=== PATIENT | female | born 1960 | race Caucasian/White ===

== ENCOUNTER 2016-12-11 10:32 | Observation (INO) | payer OTHER ==
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
[~2016-12-11 10:32] MED LIST: CHLORHEXIDINE GLUC HIBICLENS 118 ML BTL TP ONE; ceFAZolin 2 GM/DEXTROSE 100 ML IV ONE
[2016-12-11] MEDS ORDERED: BUPIVACAINE/EPI 0.5% 30 ML SDV ONE (10:36)
[2016-12-11] MEDS ORDERED: CEFAZOLIN 2 GM/DEXTROSE/100 ML BAG IV ONE (10:39)
[2016-12-11] MEDS ORDERED: LR 1,000 ML IV ONE (11:05)
[2016-12-11] MEDS ORDERED: LIDOCAINE 1% 5 ML SDV ID PRN (11:05)
[2016-12-11] MEDS ORDERED: MIDAZOLAM 2 MG/2 ML VIAL ONE (13:49)
[2016-12-11] MEDS ORDERED: fentaNYL 250 MCG/5 ML INJ ONE (13:51)
[2016-12-11] MEDS ORDERED: PROPOFOL 200 MG/20 ML VIAL ONE (13:52)
[2016-12-11] MEDS ORDERED: HYDROmorphONE/DILAUDID 2 MG/ML SYR ONE ×2 (15:08→16:41)
[2016-12-11] MEDS ORDERED: ONDANSETRON 4 MG/2 ML VIAL ONE (15:10)
[2016-12-11] MEDS ORDERED: DEXAMETHASONE 4 MG/ML VIAL ONE (15:10)
[2016-12-11] MEDS ORDERED: BACITRACIN 50,000 UNITS/10 ML SYR IRR ONE (15:44)
--- NOTE | 2016-12-11 16:04 | POSTOPPROG ---
Post Op Note Date of Operation: 12/11/16 Surgeon: Danny Sutton Rug Renovator: Shaq Anesthesiologist: Dyllan Anesthesia: GET(General Endotracheal) Post-op Diagnosis: left tibial plateau fracture Procedure: ORIF Inf/Abcess present in the surg proc area at time of surgery?: No EBL: 50-100
[2016-12-11] MEDS ORDERED: OXYCODONE/APAP 5/325 TAB PO PRN (16:22)
[2016-12-11] MEDS ORDERED: HYDROCODONE/APAP 5/325 TAB PO PRN (16:22)
[2016-12-11] MEDS ORDERED: ONDANSETRON DISINTEGRATING 4 MG TAB PO PRN (16:22)
[2016-12-11] MEDS ORDERED: ONDANSETRON 4 MG/2 ML VIAL IVP PRN (16:22)
[2016-12-11] MEDS ORDERED: traMADol 50 MG TAB PO PRN (16:22)
[2016-12-11] MEDS ORDERED: fentaNYL 100 MCG/2 ML INJ ONE (16:24)
[2016-12-11] MEDS ORDERED: MEPERIDINE 25 MG/ML SYR ONE (16:24)
[2016-12-11] MEDS ORDERED: LR 1,000 ML IV SCH (16:30)
[2016-12-11] MEDS ORDERED: KETOROLAC 15 MG/1 ML SDV ONE (16:37)
--- NOTE | 2016-12-11 18:05 | DX ---
Intraoperative Fluoroscopy of the Tibia CLINICAL HISTORY: Intraoperative evaluation during ORIF for a tibial fracture. COMPARISON STUDY: None currently available. FINDINGS: Dr. Danny Sutton used 59.1 seconds of fluoroscopy time and an exposure dose of 2.95 mGy du ring open reduction and internal fixation for a proximal tibial diaphyseal fracture. A malleable rec onstruction plate is secured by multiple orthopedic screws, and the caudal margin of the orthopedic p late was not included on the spot matrix images. IMPRESSION: Intraoperative fluoroscopy during ORIF.
[2016-12-11] MEDS: KETOROLAC 15 MG/1 ML SDV IVP SCH ×2 (18:28→23:53)
--- NOTE | 2016-12-11 19:35 | GOP ---
[f rep st] OPERATIVE REPORT DATE OF OPERATION: 12/11/2016 SURGEON: Danny Sutton MD QC MANAGER: Marquis Ordonez and Neto An acted as surgical assistants. Their assistance was a me dical necessity. ANESTHESIA: General. ANESTHESIOLOGIST: Dr. Sharad Mijares. PREOPERATIVE DIAGNOSIS: 1. Displaced left tibial plateau fracture. 2. Status post application of external fixation device. POSTOPERATIVE DIAGNOSIS: 1. Displaced left tibial plateau fracture. 2. Status post application of external fixation device. PROCEDURE PERFORMED: 1. ORIF of left tibial plateau fracture. 2. Removal of external fixation device from the left lower extremity. FINDINGS: DESCRIPTION OF PROCEDURE: The patient was given 2 g of IV Ancef preoperatively within 60 minutes of surgery. She was placed on the operating room table in the supine position and given general anesthe marbin by Dr. Mijares. I initially left the external fixation device in place because it was stabilizing the fracture. Her entire left lower extremity including the external fixation device was prepped wi th Betadine soap. The left lower extremity was draped free using sterile paper drapes. The [employer] time-out was performed to verify the correct patient identity and the c orrect surgical side. Initially, I removed the more posterior of the 2 bars holding the external fixation device in place. This allowed me more access to the posterior lateral side of her leg. I made a 6-7 inch incision wh ich began distally along the lateral edge of the crest of her tibia. As I approached the joint line, I curved posteriorly creating an inverted J. Subcutaneous tissues were sharply divided, and hemosta sis was obtained using electrocautery. A moderate amount of hematoma was removed from the subcutaneo us tissues. I then dissected the musculature of the anterior compartment off the anterior lateral cabezas rface of her tibia. I divided the fascia laterally as I curved posteriorly and proximally. This all owed me exposure of the tibial tubercle and the lateral cortex of the proximal tibia and the plateau. I could see the displaced large tibial tubercle fragment. I could also see the posterior lateral c omminution. The hematoma was evacuated with a curette and suction and irrigation. I then used a large clamp to c lamp the posterior lateral fragment and clamped the tibial tubercle fragment in place. I could see b y the fracture anatomy that I was getting an anatomic position of the tibial tubercle fragment. I th en inserted from anterior to posterior two 4.0 bicortical screws. This was drilled and countersunk. This provided reasonably good fixation of the tibial tubercle fragment in an excellent position. I then selected an 8 hole lateral tibial plateau [employer]ynthe[employer] plate. This was held in place and I used e C-arm to tribal judge proper positioning of the plate. I was careful to make it parallel with the anterio r cortex of the tibia on the distal end. I used a clamp to compress the posterolateral fragment. I then inserted two 4.0 bicortical screws distal to the fracture site. I then inserted the 3 proximal transfer screws that went across the plateau. The anterior and posterior of these screws were lockin g, and the central screw was a nonlocking screw. The nonlocking screw was used 1st so that it sucked the plate down against the cortex. I then inserted a 3rd bicortical 4.0 mm screw in the distal hole of the plate. I inserted an oblique proximal locking screw. The last screw was a transfer screw wh ich was inserted in a compression mode. This allowed me to compress the medial cortex fragment towar d the plate. I used the fluoroscopy intermittently while the hardware was being inserted to check the position and size of the hardware. At the completion, I took some permanent spot films. After the start of the procedure, it became obv ious that I needed to be able to manipulate the knee. I went ahead and removed the 2nd arnie of the ex ternal fixator. Once the hardware was all in place, I had achieved good stability of her fracture. Her knee was very stiff from being in the external fixator for 10 days. I went ahead with direct vi sualization of the fracture and the hardware, and manipulated the knee. I could feel some adhesions breaking. I was able to flex her back to 110 degrees without disrupting the hardware or the fracture . At this point, the tourniquet was deflated. Total tourniquet time was 66 minutes. The procedure was completed without the tourniquet. The wound was irrigated with an antibiotic solution. The fascia of the musculature of the anterior compartment was then reapproximated loosely. The subcutaneous tis sues were injected with 30 cc of 0.5% Marcaine with epinephrine. Subcutaneous tissues were closed wi interrupted 3-0 Monocryl. The skin was closed with ozzy. The wound was covered with Xeroform gauze and flat 4x4's. The knee was wrapped with a Kerlix. Once the surgical wound was closed, we went ahead and removed the 2 threaded pins in the femur and th e 2 threaded pins in the tibia. She was immobilized in a hinged knee brace. The estimated blood loss following deflation of the tourniquet was about 100 cc. She was awakened from anesthesia, transferred to her gurney, and taken to PACU in satisfactory condit ion. There were no intraoperative complications. /[id number]/MODL
[2016-12-12] MEDS: KETOROLAC 15 MG/1 ML SDV IVP SCH ×2 (06:18→12:04)
[2016-12-12 07:16] VITALS: BP 119/67; PULSE 94; RESP 18; TEMP 98.6; O2SAT 100
[2016-12-12] MEDS ORDERED: ASPIRIN 325 MG TAB PO SCH (09:00)
--- NOTE | 2016-12-12 09:48 | SOAPPROG ---
SOAP Progress Note Assessment/Plan: Assessment: Afebrile. Moderate pain. On Tramadol. Walking in room. Peroneal nerve intact. Plan: Up with PT. DC today. OP PT. 12/12/16 09:47 Objective: Vital Signs Temp Pulse Resp BP Pulse Ox 37.0 C 94 18 119/67 100 12/12/16 07:16 12/12/16 07:16 12/12/16 07:16 12/12/16 07:16 12/12/16 07:16 12/11/16 12/12/16 12/13/16 05:59 05:59 05:59 Intake Total 4000 Output Total 1900 Balance 2100 ICD10 Worksheet Patient Problems: Problems Problem Status Diagnosed Tibial plateau fracture, left Acute
--- NOTE | 2016-12-12 10:22 | GDS ---
[f rep st] DISCHARGE SUMMARY ADMISSION DIAGNOSIS: Unstable displaced left tibial plateau fracture. DISCHARGE DIAGNOSIS: Unstable displaced left tibial plateau fracture. OPERATION PROCEDURE: 12/11/2016, ORIF of left tibial plateau fracture. POSTOPERATIVE COMPLICATIONS: None. CONDITION ON DISCHARGE: Improved. DESCRIPTION OF HOSPITAL COURSE: The patient was admitted to the hospital on the morning of surgery. The same day, under general anesthesia, she underwent open reduction and internal fixation of her le ft tibial plateau fracture. Postoperatively, she was treated in a hinged knee brace. She was seen b y physical therapy for ambulation, foot flat, partial weightbearing on the left. She was treated wit h multimodal DVT prophylaxis, including aspirin. She was also instructed in knee range of motion exe rcises. By the time of discharge, she was afebrile and was independent walking. DISPOSITION: The patient discharged to her home. She has prescriptions for oxycodone and tramadol f or pain control. Continue aspirin 325 mg p.o. daily for 21 days. She will go to outpatient physical therapy to work on knee range of motion. I will see her back in the office on December 20, 2016. If there any problems, she is to call me at the office. /[id number]/MODL
== END 2016-12-12 12:08 | disposition home or self-care (01) ==
LOC: F3N 10:32
PROVIDERS: ADMIT Orthopaedic Surgery; ATTEND Orthopaedic Surgery
PROC: 0QPH05Z Removal of External Fixation Device from Left Tibia, Open Approach (ICD-10-PCS; principal; 2016-12-11 12:15)
PROC: 0QSH04Z Reposition Left Tibia with Internal Fixation Device, Open Approach (ICD-10-PCS; principal; 2016-12-11 12:15)
DX: S82.142A Displaced bicondylar fracture of left tibia, initial encounter for closed fracture (principal); V49.50XA Passenger injured in collision with unspecified motor vehicles in traffic accident, initial encounter; Y92.410 Unspecified street and highway as the place of occurrence of the external cause
CPT/HCPCS: 20694; 27536; 76001; 97161; 97165; C1769; G0378; C1713; J0690; J1100; J1170; J1885; J2250; J2405; J2704; J3010; L1832